=== PATIENT | female | born 2000 | race Caucasian/White ===

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

== ENCOUNTER 2022-03-15 22:03 | Emergency (ER) | payer OTHER ==
[~2022-03-15] VITALS: Ht 167.6 cm; Wt 51.6 kg
[~2022-03-15 22:03] MED LIST changes: +ESCI10TA16; +LEXA1TAB PO; -OLAN2.5T; +OLAN2.5T25; +OLAN2.5T25 PO; +SPRI28TA PO
[2022-03-15 22:05] VITALS: BP 124/91
[2022-03-15] MEDS ORDERED: KETOROLAC 30 MG/ML 1ML VIAL IV ONE (23:05)
[2022-03-15 23:22] LABS: BASO % 0.4 % (0.0-1.0); EOS # 0.1 10^3/uL (0.0-0.5); EOS % 0.9 % (0.0-3.0); HEMATOCRIT 37.7 % (36.0-47.0); HEMOGLOBIN 12.1 g/dl (12.0-15.5); LYMPH # 2.1 10^3/uL (1.5-5.0); LYMPH % 21.8 % (24.0-44.0); MEAN CORPUSCULAR HEMOGLOBIN 26.8 pg (27.0-33.0); MEAN CORPUSCULAR HGB CONC 32.1 g/dl (32.0-36.5); MEAN CORPUSCULAR VOLUME 83.6 fl (80.0-96.0); MONO % 10.2 % (2.0-8.0); NEUTROPHILS # 6.5 10^3/uL (1.5-8.5); NEUTROPHILS % 66.4 % (36.0-66.0); PLATELET COUNT, AUTOMATED 341 10^3/uL (150-450); RED BLOOD COUNT 4.51 10^6/uL (4.00-5.40); WHITE BLOOD COUNT 9.8 10^3/uL (4.0-10.0)
[2022-03-15 23:50] LABS: ALBUMIN 3.8 G/DL (3.2-5.2); ALKALINE PHOSPHATASE 135 U/L (46-116); ALT/SGPT 35 U/L (7.0-40); AST/SGOT 24 U/L (<34); BILIRUBIN,DIRECT < 0.1 MG/DL (<0.4); BILIRUBIN,TOTAL < 0.2 MG/DL (0.3-1.2); LIPASE 25 U/L (12-53); MAGNESIUM LEVEL 1.9 MG/DL (1.8-2.4); TOTAL PROTEIN 7.5 G/DL (5.7-8.2)
[2022-03-16] MEDS ORDERED: MOM 30ML SUSPENSION UDC PO ONE (00:35)
[2022-03-16] MEDS ORDERED: MIRA3350 PO (00:36)
== END 2022-03-16 00:51 | disposition home or self-care (01) ==
LOC: M ED 22:03
DX: K59.00 Constipation, unspecified (principal); R10.2 Pelvic and perineal pain; Z97.5 Presence of (intrauterine) contraceptive device; F17.200 Nicotine dependence, unspecified, uncomplicated; Z79.3 Long term (current) use of hormonal contraceptives; Z79.899 Other long term (current) drug therapy
CPT/HCPCS: 74018; 76830; 76856; 80047; 80076; 81000; 81015; 83690; 83735; 84702; 85025; 87086; 93976; 96374; 99283; J1885

== ENCOUNTER 2023-02-16 21:58 | Emergency (ER) | payer OTHER ==
[~2023-02-16] VITALS: Ht 167.6 cm; Wt 52.3 kg
[~2023-02-16 21:58] MED LIST changes: +MIRA3350 PO
[2023-02-16 21:59] VITALS: BP 142/74; TEMP 97.4; O2SAT 100
== END 2023-02-17 03:50 | disposition home or self-care (01) ==
LOC: M ED 21:58
DX: M25.562 Pain in left knee (principal); W20.8XXA Other cause of strike by thrown, projected or falling object, initial encounter; F41.9 Anxiety disorder, unspecified; F32.A Depression, unspecified; Y92.009 Unspecified place in unspecified non-institutional (private) residence as the place of occurrence of the external cause; Y93.89 Activity, other specified; Y99.9 Unspecified external cause status; Z79.899 Other long term (current) drug therapy; Z79.3 Long term (current) use of hormonal contraceptives